=== PATIENT | female | born 1940 | race Caucasian/White ===

== ENCOUNTER 2018-03-18 11:13 | Emergency (ER) | payer MEDICARE, OTHER ==
[~2018-03-18] VITALS: Ht 154.9 cm; Wt 45.4 kg
[~2018-03-18 11:13] MED LIST: IBUPROFEN600 MG ORAL; NKM; VICODIN 5-5001 EACH ORAL
[2018-03-18] MEDS ORDERED: Isovue-300 100ml vial INJ PRN (11:30)
[2018-03-18 12:02] LABS: BASOPHILS % (AUTO) 0.9 % (0.0-2.0); EOSINOPHILS % (AUTO) 0.5 % (0.0-3.0); HEMATOCRIT 42.7 % (37.0-47.0); HEMOGLOBIN 14.2 G/DL (12.0-16.0); LYMPHOCYTES % (AUTO) 11.4 % (20.0-45.0); MEAN CORPUSCULAR VOLUME 85 FL (80-99); MONOCYTES % (AUTO) 9.3 % (1.0-10.0); NEUTROPHILS % (AUTO) 77.9 % (45.0-75.0); PLATELET COUNT 381 K/UL (150-450); RED BLOOD COUNT 5.02 M/UL (4.20-5.40); RED CELL DISTRIBUTION WIDTH 11.1 % (11.6-14.8); WHITE BLOOD COUNT 10.6 K/UL (4.8-10.8)
[2018-03-18 12:05] LABS: APPEARANCE,URINE CLEAR; BILIRUBIN, URINE NEGATIVE (NEGATIVE); GLUCOSE, URINE (UA) NEGATIVE (NEGATIVE); KETONES,URINE 3+ (NEGATIVE); LEUKOCYTE ESTERASE ,URINE 1+ (NEGATIVE); NITRITE,URINE NEGATIVE (NEGATIVE); PH,URINE 5 (4.5-8.0); PROTEIN,URINE 1+ (NEGATIVE); UROBILINOGEN,URINE NORMAL MG/DL (0.0-1.0)
[2018-03-18 12:09] LABS: ANION GAP 11 mmol/L (5-15); BLOOD UREA NITROGEN 10 mg/dL (7-18); CALCIUM 9.7 MG/DL (8.5-10.1); CARBON DIOXIDE 26 MMOL/L (21-32); CHLORIDE 99 MMOL/L (98-107); CREATININE 0.6 MG/DL (0.55-1.30); SODIUM 136 MMOL/L (136-145)
[2018-03-18 12:10] LABS: COLOR,URINE YELLOW
[2018-03-18 12:13] LABS: ALANINE AMINOTRANSFERASE 150 U/L (12-78); ALBUMIN 2.9 G/DL (3.4-5.0); ALBUMIN/GLOBULIN RATIO 0.6 (1.0-2.7); ALKALINE PHOSPHATASE 425 U/L (46-116); ASPARTATE AMINO TRANSFERASE 290 U/L (15-37); BILIRUBIN,TOTAL 0.5 MG/DL (0.2-1.0)
--- NOTE | 2018-03-18 13:38 | Diagnostic Imaging Report ---
Clinical Indication: Abdominal pain, nausea Technique: No oral contrast utilized, per emergency room physician request IV administration nonionic contrast. Venous phase spiral acquisition obtained through the abdomen and pelvis. Multiplanar reconstructions were generated. Total dose length product 523.91 mGycm. CTDIvol(s) 10.62 mGy. Dose reduction achieved using automated exposure control Comparison: none Findings: Innumerable hypoattenuating but variably enhancing masses of varying sizes, largest measuring up to 8 cm diameter, seen within the liver. The largest mass is within segment IVb of the liver adjacent to the jc hepatis. There are also a few hepatic cysts demonstrated. The gallbladder demonstrates mild wall thickening. There is nondistended and there are no gallstones. Biliary ducts are normal in caliber. The pancreas demonstrates an ill-defined area of low-attenuation measuring 13 mm in the junction of the head and the uncinate. There is a low attenuation 2.7 cm mass within or adjacent to the superior aspect of the pancreatic body. A small amount of free fluid is seen within the pelvis. Enhancing nodules up to 8 mm in diameter seen at the periphery of the pelvic fluid collection. Trace fluid is also seen adjacent to the proximal descending colon. Lack of enteric contrast limits assessment of the GI tract. There is colonic diverticulosis. No definite evidence of acute diverticulitis. There is unusual focal peripheral mural enhancement of the posterior inferior aspect of the sigmoid colon, and unusual enhancing soft tissue strands are seen extending between the sigmoid and the uterus. The appendix is not definitely visualized, but no findings to suggest acute appendicitis are evident. No small bowel distention. No free intraperitoneal gas demonstrated. The distal esophagus, stomach, duodenum are unremarkable. The spleen and adrenals are unremarkable. The left kidney demonstrates an interpolar region cyst. Both kidneys demonstrate bilateral subcentimeter low-attenuation lesions which are too small to characterize. The left kidney demonstrates a 5 mm calculus in the interpolar region collecting system. There is mild left hydronephrosis, but no ureteral dilatation and no obstructing calculus demonstrated. The bladder is unremarkable. Dependent atelectatic changes and scarring are seen at both lung bases. A few scattered sub-5 mm nodules are seen within the lungs bilaterally. There are degenerative spondylosis changes. Impression: Innumerable liver lesions, presumably representing multiple metastatic deposits 2.7 cm mass within or adjacent to the pancreatic body. This could represent a primary pancreatic lesion or peripancreatic lymphadenopathy. Second more questionable subtle low-attenuation lesion is seen at the junction of the pancreatic body and uncinate process, if real could also represent primary pancreatic neoplasm Unusual enhancing soft tissue strands extending from the sigmoid colon wall to the uterus. Significance uncertain. Could represent an unusual inflammatory changes versus unusual mostly extraluminal sigmoid neoplasm Free fluid within the pelvic cul-de-sac. Multiple enhancing nodules at the periphery of the fluid collection could indicate neoplastic/metastatic deposits. There is also small amount of free fluid adjacent to the descending colon Scattered sub-5 mm pulmonary nodules. These could be inflammatory/postinflammatory or could represent metastatic deposits Colonic diverticulosis Mild left hydronephrosis, without definite obstructive lesion. 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 5 mm nonobstructive left renal calculus also incidentally noted Left renal cysts. Bilateral subcentimeter low-attenuation renal lesions, too small to characterize, most likely benign simple cysts. No further follow-up necessary Other findings as noted, including basilar pulmonary dependent atelectatic changes, degenerative spondylosis. Findings discussed by phone with Dr. Plascencia in the emergency room at the time of interpretation The CT scanner at [facility] is accredited by the [employer] and the scans are performed using protocols designed to limit radiation exposure to as low as reasonably achievable to attain images of sufficient resolution adequate for diagnostic evaluation.
[2018-03-18 14:08] VITALS: BP 138/63
[2018-03-18] MEDS ORDERED: IBUPROFEN600 MG ORAL (14:44)
--- NOTE | 2018-03-18 15:14 | Emergency Room Report ---
History of Present Illness General Chief Complaint: Abdominal Pain Source: Patient Present Illness HPI This patient states that she has had diffuse abdominal pain intermittently for many months. However, she states that over the past week or symptoms have been more severe. She states that she did go to a physical therapist however, her symptoms have not improved. She went to an urgent care clinic today and was instructed to come to the emergency department for further evaluation. The patient states that she has been having some much pain she's been unable to sleep. She is also been nauseated but denies vomiting. She denies fever or chills. She denies dysuria or hematuria. She denies cough or congestion. She denies shortness of breath. She has no other complaints. Allergies: Coded Allergies: No Known Allergies (Unverified , 12/24/12) Patient History Past Medical History: none, see triage record Social History: Denies: smoking, alcohol use, drug use Reviewed Nursing Documentation: PMH: Agreed; PSxH: Agreed Nursing Documentation-PMH Past Medical History: No Stated History Review of Systems All Other Systems: negative except mentioned in HPI Physical Exam Vital Signs Date Time Temp Pulse Resp B/P (MAP) Pulse Ox O2 Delivery O2 Flow Rate FiO2 03/18/18 11:25 97.5 91 18 147/84 95 Room Air Sp02 EP Interpretation: reviewed, normal General Appearance: no apparent distress, alert, GCS 15, non-toxic Head: normocephalic, atraumatic Eyes: bilateral eye normal inspection, bilateral eye PERRL ENT: hearing grossly normal, normal pharynx, no angioedema, normal voice Neck: full range of motion, supple/symm/no masses Respiratory: chest non-tender, lungs clear, normal breath sounds, no respiratory distress, no retraction, no accessory muscle use, speaking full sentences Cardiovascular #1: regular rate, rhythm, no edema Gastrointestinal: normal bowel sounds, no guarding, no rebound, other - firm, enlarged liver Rectal: deferred Musculoskeletal: back normal, gait/station normal, normal range of motion, non- tender Neurologic: alert, oriented x3, responsive, motor strength/tone normal, sensory intact, speech normal Psychiatric: judgement/insight normal, memory normal, mood/affect normal, no suicidal/homicidal ideation Skin: normal color, no rash, warm/dry, well hydrated Medical Decision Making Diagnostic Impression: Primary Impression: Metastatic cancer Additional Impression: UTI (urinary tract infection) ER Course This patient is found to have findings on CT consistent with metastatic cancer. This does explain her symptoms. She has a mild transaminitis which is consistent with the multiple liver lesions found on CT. I will give the patient pain medication and sleep medication at her request. The patient indicated she would not want to undergo chemotherapy and is not interested in speaking with her oncologist. She states that she will speak with her sister about obtaining hospice care. Her sister is an internal medicine physician. 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 The social professionals was contacted but stated she was unable to help with the situation. The patient was instructed to obtain a primary care physician and or relocate to live near her sister as offered by her sister. The patient was given return precautions and follow-up instructions. Laboratory Tests Test 03/18/18 11:40 White Blood Count 10.6 K/UL (4.8-10.8) Red Blood Count 5.02 M/UL (4.20-5.40) Hemoglobin 14.2 G/DL (12.0-16.0) Hematocrit 42.7 % (37.0-47.0) Mean Corpuscular Volume 85 FL (80-99) Mean Corpuscular Hemoglobin 28.3 PG (27.0-31.0) Mean Corpuscular Hemoglobin Concent 33.3 G/DL (32.0-36.0) Red Cell Distribution Width 11.1 % (11.6-14.8) L Platelet Count 381 K/UL (150-450) Mean Platelet Volume 6.4 FL (6.5-10.1) L Neutrophils (%) (Auto) 77.9 % (45.0-75.0) H Lymphocytes (%) (Auto) 11.4 % (20.0-45.0) L Monocytes (%) (Auto) 9.3 % (1.0-10.0) Eosinophils (%) (Auto) 0.5 % (0.0-3.0) Basophils (%) (Auto) 0.9 % (0.0-2.0) Urine Color Yellow Urine Appearance Clear Urine pH 5 (4.5-8.0) Urine Specific [place] 1.025 (1.005-1.035) Urine Protein 1+ (NEGATIVE) H Urine Glucose (UA) Negative (NEGATIVE) Urine Ketones 3+ (NEGATIVE) H Urine Blood 2+ (NEGATIVE) H Urine Nitrite Negative (NEGATIVE) Urine Bilirubin Negative (NEGATIVE) Urine Urobilinogen Normal MG/DL (0.0-1.0) Urine Leukocyte Esterase 1+ (NEGATIVE) H Urine RBC 5-10 /HPF (0 - 2) H Urine WBC 5-10 /HPF (0 - 2) H Urine Squamous Epithelial Cells Few /LPF (NONE/OCC) Urine Bacteria Few /HPF (NONE) Sodium Level 136 MMOL/L (136-145) Potassium Level 4.0 MMOL/L (3.5-5.1) Chloride Level 99 MMOL/L (98-107) Carbon Dioxide Level 26 MMOL/L (21-32) Anion Gap 11 mmol/L (5-15) Blood Urea Nitrogen 10 mg/dL (7-18) Creatinine 0.6 MG/DL (0.55-1.30) Estimate Glomerular Filtration Rate mL/min (>60) Glucose Level 100 MG/DL (74-106) Calcium Level 9.7 MG/DL (8.5-10.1) Total Bilirubin 0.5 MG/DL (0.2-1.0) Aspartate Amino Transferase (AST) 290 U/L (15-37) H Alanine Aminotransferase (ALT) 150 U/L (12-78) H Alkaline Phosphatase 425 U/L (46-116) H Total Protein 7.8 G/DL (6.4-8.2) Albumin 2.9 G/DL (3.4-5.0) L Globulin 4.9 g/dL Albumin/Globulin Ratio 0.6 (1.0-2.7) L Lipase 86 U/L (73-393) Last Vital Signs Date Time Temp Pulse Resp B/P (MAP) Pulse Ox O2 Delivery O2 Flow Rate FiO2 03/18/18 14:08 97.5 87 18 138/63 95 Room Air Status: improved Disposition: HOME, SELF-CARE Condition: Improved Referrals: NOT CHOSEN IPA/,REFERRING (PCP) Mabel Fernández DO Mar 18, 2018 15:14
[2018-03-18] MEDS ORDERED: ACETAMINOPHEN-1 EAC1 ORAL (15:17)
[2018-03-18] MEDS ORDERED: AMBIEN5 MG ORAL (15:17)
[2018-03-18] MEDS ORDERED: NITROFURANTOIN100 M2 ORAL (15:17)
[2018-03-18 15:49] VITALS: BP 138/63
== END 2018-03-18 15:50 | disposition home or self-care (01) ==
LOC: EMR 11:45
DX: N39.0 Urinary tract infection, site not specified (principal); R10.9 Unspecified abdominal pain; C79.9 Secondary malignant neoplasm of unspecified site; C80.1 Malignant (primary) neoplasm, unspecified
CPT/HCPCS: 36415; 74177; 80053; 81003; 83690; 85025; 96360; 99284; Q9967